=== PATIENT | male | born 1960 | race Caucasian/White ===

== ENCOUNTER 2017-03-20 12:08 | Emergency (ER) | payer BC ==
[2017-03-20] MEDS ORDERED: Lidocaine 1% PF 5 ML VIAL ONE (14:37)
[2017-03-20] MEDS ORDERED: Clindamycin/D5W 600 mg/50 ml Premix Bag ONE (16:04)
[2017-03-20 16:19] LABS: #Eosinphils 0.2 thou/uL (0.0-0.7); #Lymphocytes 1.1 thou/uL (1.20-3.40); #Monocytes 0.6 thou/uL (0.11-0.59); #Neutrophils 7.5 thou/uL (1.40-6.50); %Basophils 0.1 % (0.0-1.0); %Eosinophils 2.1 % (0.0-10.0); %Monocytes 6.3 % (0.0-10.0); Mean Platelet Volume 7.2 fL (7.4-10.4); White Blood Cell (WBC) Count 9.4 thou/uL (4.8-10.8)
--- NOTE | 2017-03-20 16:19 | RAD ---
RADIOGRAPH RIGHT KNEE 4 VIEWS: 03/20/17 HISTORY: 56-year-old male status post trauma, lacerations of the right knee. FINDINGS: There is superficial soft tissue lucency superiorly and medial to the knee. No fracture or dislocati on. No high grade degenerative changes, radiopaque foreign body, or joint effusion. IMPRESSION: 1. Anterior superior soft tissue laceration. 2. No osseous abnormality. POS: [facility]
[2017-03-20 16:23] LABS: PTT 26.5 SEC (22.9-36.1); Prothrombin Time 13.7 SEC (12.0-14.7)
[2017-03-20 16:42] LABS: Anion Gap 12 mmol/L (10-20); BUN (Urea Nitrogen) 11 mg/dL (8.4-25.7); Calc. Creatinine Clearance 0 mL/min (70-130); Calcium 9.7 mg/dL (7.8-10.44); Carbon Dioxide 26 mmol/L (22-29); Chloride 104 mmol/L (98-107); Estimated GFR-MDRD Greater than 90
[2017-03-20] MEDS ORDERED: Lidocaine 2% PF 10 ML AMP (For Epidural Use) ONE (16:45)
[2017-03-20] MEDS ORDERED: Bacitracin Zinc 1 Packet ONE (17:13)
== END 2017-03-20 17:25 | disposition home or self-care (01) ==
LOC: ERS 12:08
DX: S81.011A Laceration without foreign body, right knee, initial encounter (principal); I10 Essential (primary) hypertension; K21.9 Gastro-esophageal reflux disease without esophagitis; F17.220 Nicotine dependence, chewing tobacco, uncomplicated; Z79.899 Other long term (current) drug therapy; W45.8XXA Other foreign body or object entering through skin, initial encounter
CPT/HCPCS: 12002; 36415; 80048; 85025; 85610; 85730; 86850; 86900; 86901; 96374; 96375; 96376; J2001; J2270; J3490

== ENCOUNTER 2018-12-25 11:17 | Observation (INO) | payer BC, SELFPAY ==
[2018-12-25] MEDS ORDERED: Nitroglycerin 2% Ointment 1 INCH/1 GM Packet ONE (12:28)
[2018-12-25 12:39] LABS: #Eosinphils 0.1 thou/uL (0.0-0.7); #Lymphocytes 1.2 thou/uL (1.20-3.40); #Monocytes 0.8 thou/uL (0.11-0.59); %Basophils 0.3 % (0.0-1.0); %Lymphocytes 14.7 % (21.0-51.0); %Monocytes 9.4 % (0.0-10.0); %Neutrophils 74.7 % (42.0-75.0); Hemoglobin 14.9 g/dL (14.0-18.0); Mean Corpuscular HGB CONC 34.7 g/dL (32.0-36.0); Mean Corpuscular Hemoglobin 33.5 pg (27.0-31.0); Mean Corpuscular Volume 96.5 fL (78.0-98.0); Mean Platelet Volume 6.8 fL (7.4-10.4); Platelet Count 253 thou/uL (130-400); Red Blood Cell (RBC) Count 4.45 mill/uL (4.70-6.10); White Blood Cell (WBC) Count 8.1 thou/uL (4.8-10.8)
[2018-12-25 13:00] LABS: ALT (SGPT) 30 U/L (8-55); AST (SGOT) 21 U/L (5-34); Albumin 4.7 g/dL (3.5-5.0); Alkaline Phosphatase 68 U/L (40-150); Anion Gap 13 mmol/L (10-20); BUN (Urea Nitrogen) 14 mg/dL (8.4-25.7); Bilirubin, Total 0.8 mg/dL (0.2-1.2); Calc. Creatinine Clearance 0 mL/min (70-130); Carbon Dioxide 27 mmol/L (22-29); Chloride 100 mmol/L (98-107); Estimated GFR-MDRD 90; Globulin 2.8 g/dL (2.4-3.5); Glucose 99 mg/dL (70-105); Potassium 4.2 mmol/L (3.5-5.1); Protein, Total 7.5 g/dL (6.0-8.3); Sodium 136 mmol/L (136-145)
--- NOTE | 2018-12-25 14:27 | RAD ---
RADIOGRAPH CHEST 1 VIEW: DATE: 12/25/2018 HISTORY: 58-year-old male with chest pain FINDINGS: There are no airspace densities, pulmonary edema, pneumothorax, or cardiomegaly. The lateral costophr enic angles are sharp. IMPRESSION: No acute cardiopulmonary findings.
[2018-12-25 16:06] LABS: Troponin I Less than 0.010 ng/mL (< 0.028)
[2018-12-25] MEDS ORDERED: Ondansetron ODT 4 MG TAB PO PRN (17:33)
[2018-12-25] MEDS ORDERED: Acetaminophen 325 MG TAB PO PRN (17:33)
[2018-12-25] MEDS ORDERED: Acetaminophen 650 MG Suppository PR PRN (17:33)
[2018-12-25] MEDS ORDERED: Ondansetron PF 4 MG/2 ML Vial IVP PRN (17:33)
[2018-12-25 17:48] VITALS: BMI 28.6
[2018-12-25] MEDS ORDERED: Nicotine 14 MG PATCH TD SCH (18:00)
[2018-12-25 19:00] LABS: Troponin I Less than 0.010 ng/mL (< 0.028)
--- NOTE | 2018-12-25 21:11 | HP ---
CHIEF COMPLAINT: Chest pain. HISTORY OF PRESENT ILLNESS: Mr. Garcia is a pleasant 58-year-old man, who presents following an episode of chest pain that started around 10 a.m. this morning while he was at [employer]. The patient apparently was witnessed to appear unwell and pale. The patient reports feeling discomfort on the left side of his chest, which was nonradiating. He finds it difficult to rate in terms of severity and states it was possibly 6/10, though he tends to have a high pain threshold. He does report feeling queasy and per EMS, it was told he appeared diaphoretic. He states the discomfort had eased by the time he arrived to the emergency department. Currently, the pain is 1/10, which he describes as an ache. He reports feeling a fluttering in his chest when it first started. He has been well in himself in in recent days. Denies having any recent fevers, chills, or sweats. No cough or shortness of breath. No abdominal pain. Has had normal bowel movements. No urinary symptoms. In the emergency department, he was given Nitrostat. The patient states by then the pain had already eased on its own. The patient states he has never had pain like this before and has never undergone any cardiac investigations in the past. He does have hypertension that is well managed, though he admits to not checking his blood pressure regularly. At times when he does check it, it is in the one-teens in the mornings, but he takes his medication in the evenings. PAST MEDICAL HISTORY: 1. Hypertension. 2. GERD. PAST SURGICAL HISTORY: Pilonidal cyst during childhood. SOCIAL HISTORY: The patient reports chewing tobacco daily. He did smoke cigarettes previously. Reports occasional alcohol. States he usually drinks 2 to 3 days of the week and will have 3 to 4 mixed alcoholic drinks each of those days. Denies any illicit drug use. ALLERGIES: 1. ERYTHROMYCIN. 2. PENICILLIN. CURRENT MEDICATIONS: 1. Chlorthalidone. 2. Alejo. 3. Pantoprazole. 4. Olmesartan/amlodipine. PHYSICAL EXAMINATION: GENERAL: The patient appears well developed, well nourished, is in no acute distress. VITAL SIGNS: Temperature 98.3, pulse 80, respirations 16, O2 saturation 97% on room air, blood pressure 119/68. HEENT: Normocephalic and atraumatic. Pupils are equal, round, and reactive to light. Sclerae without icterus. Oropharynx is clear. NECK: Supple without lymphadenopathy. LUNGS: Clear to auscultation bilaterally without wheezes, rales, or rhonchi. CARDIAC: Regular rate and rhythm without audible murmurs, rubs, or gallops. No chest wall tenderness. ABDOMEN: Soft, nontender, nondistended. Normoactive bowel sounds present. EXTREMITIES: No lower leg swelling or edema. NEUROLOGIC: Alert and oriented x3. SKIN: Without rash or jaundice. LABORATORY DATA: Full blood count unremarkable. Electrolytes unremarkable. BUN 14, creatinine 0.88, GFR 90. LFTs unremarkable. BNP 22.7. Troponin negative x2. IMAGING DATA: Chest x-ray, 12/25/2018. No acute cardiopulmonary findings. IMPRESSION AND PLAN: Mr. Garcia is a 58-year-old man, who is being admitted for management of the following. 1. Chest pain. The patient had an episode of chest discomfort associated with diaphoresis and nausea this morning at 10 a.m. Troponins negative x2. Chest x-ray unremarkable. BNP normal. The patient has not undergone investigations in the past and family history is unknown. We will continue to trend troponin. EKG without any ST changes or T-wave abnormalities, done in the ED. We will request an echo. The patient will be kept n.p.o. at midnight in preparation for stress test. 2. Hypertension. We will monitor blood pressure and resume home medications. 3. Gastrointestinal prophylaxis. 4. Deep venous thrombosis prophylaxis. 5. Code status, full. His surrogate decision maker is his , Laurel Garcia. The patient's case to be discussed with attending. Job ID: [id number]
[2018-12-26 05:37] LABS: #Eosinphils 0.2 thou/uL (0.0-0.7); #Lymphocytes 1.6 thou/uL (1.20-3.40); #Monocytes 0.9 thou/uL (0.11-0.59); #Neutrophils 5.2 thou/uL (1.40-6.50); %Basophils 0.2 % (0.0-1.0); %Eosinophils 2.6 % (0.0-10.0); %Monocytes 10.9 % (0.0-10.0); %Neutrophils 66.4 % (42.0-75.0); Hemoglobin 14.3 g/dL (14.0-18.0); Mean Corpuscular HGB CONC 35.2 g/dL (32.0-36.0); Mean Corpuscular Hemoglobin 34.2 pg (27.0-31.0); Mean Corpuscular Volume 97.3 fL (78.0-98.0); Platelet Count 244 thou/uL (130-400); RBC Distribution Width 10.8 % (11.5-14.5); Red Blood Cell (RBC) Count 4.17 mill/uL (4.70-6.10); White Blood Cell (WBC) Count 7.9 thou/uL (4.8-10.8)
[2018-12-26 05:37] LABS: Bacteria/HPF 1+ HPF (None Seen); Bilirubin Negative (Negative); Blood, Urine Negative (Negative); Clarity Clear (Clear); Glucose, Urine (Dipstick) Normal (Negative); Leukocyte Negative Leu/uL (Negative); Nitrite Negative (Negative); Protein, Urine (Dipstick) Negative (Neg-Trace); RBC/HPF 0-3 HPF (0-3); Urobilinogen Normal mg/dL (Less than 2); WBC/HPF 0-3 HPF (0-3)
[2018-12-26 05:41] LABS: Urine Culture Reflex No No
[2018-12-26 06:07] LABS: Anion Gap 13 mmol/L (10-20); BUN (Urea Nitrogen) 12 mg/dL (8.4-25.7); Calc. Creatinine Clearance 107 mL/min (70-130); Calcium 9.4 mg/dL (7.8-10.44); Carbon Dioxide 27 mmol/L (22-29); Chloride 100 mmol/L (98-107); Estimated GFR-MDRD 82; Glucose 99 mg/dL (70-105); Potassium 3.8 mmol/L (3.5-5.1); Sodium 136 mmol/L (136-145)
--- NOTE | 2018-12-26 11:18 | NM ---
EXAM: Nuclear medicine cardiac SPECT with EF and wall motion: HISTORY: Chest pain, hypertension Protocol: Exam was performed using [employer] protocol. The patient is injected with29.5 millicuries of technetium 99m sestamibi intravenously for stress monet ges. The patient is injected with11.0 millicuries of technetium 99 sestamibi intravenously for resting monet ges. Multiple SPECT images are performed in the short axis, vertical long axis, and horizontal long axis. FINDINGS: No scan evidence for infarct or ischemia. TID:1.2 LHR:0.30 EDV:94 mL EF:68% Wall motion:Within normal limits. IMPRESSION: Unremarkable cardiac SPECT with EF and wall motion.
[2018-12-26] MEDS ORDERED: ADENOSINE 60 MG/20 ML VIAL ONE (11:56)
[2018-12-26 12:03] VITALS: BP 116/73; TEMP 97.8
[2018-12-26] MEDS ORDERED: Chlorthalidone 25 MG TAB PO SCH (17:00)
[2018-12-26] MEDS ORDERED: Amlodipine 5 MG TAB PO SCH (17:00)
--- NOTE | 2018-12-27 09:55 | DIS ---
DATE OF ADMISSION: 12/25/2018 DATE OF DISCHARGE: 12/26/2018 DISCHARGE DIAGNOSES: 1. Chest pain, resolved. 2. Hypertension. 3. Tobacco use. HOSPITAL COURSE: Mr. Garcia is a 58-year-old man with a history of hypertension and GERD, who presented with complaints of chest pain on the left side, nonradiating. The patient was given Nitrostat in the emergency department, however, by then it had already settled on its own. He was referred for ACS rule out and underwent troponins which were negative x3. BNP was 22.7. Laboratory studies were otherwise unremarkable including normal LFTs. The patient underwent a chest x-ray at initial presentation which showed no acute cardiopulmonary findings. EKG done in the emergency department showed no ST changes or T-wave abnormalities. The patient underwent a stress test which was unremarkable. There was no evidence for infarct or ischemia. He had an EF of 68% and wall motion was within normal limits. The patient therefore was medically cleared for discharge home as he remained pain-free throughout the rest of his stay. He did undergo an echocardiogram during his stay with results unavailable at the time of discharge, but given the normal EF noted on the stress test, it was deemed he could go home and follow upwith results with his primary care physician. The patient was seen and examined at the time of discharge. DISCHARGE CONDITION: Stable. ACTIVITY: As tolerated. DIET: Heart healthy. DISCHARGE MEDICATIONS: None. The patient was advised to resume his regular home medications. FOLLOWUP: The patient will follow up with his primary care physician within 1 week. DISPOSITION: Patient medically cleared for discharge home. Case was discussed with Dr. Brown, who agrees with plan of care as described above. Job ID: [id number]
--- NOTE | 2018-12-31 10:59 | EKG ---
Test Reason : CP Blood Pressure : / mmHG Vent. Rate : 063 BPM Atrial Rate : 063 BPM P-R Int : 132 ms QRS Dur : 086 ms QT Int : 384 ms P-R-T Axes : 006 021 039 degrees QTc Int : 392 ms Normal sinus rhythm Normal ECG Confirmed by RUBY YAÑEZ ([id number]), acquisitions editor YENIFER COREA ([id number]) on 12/31/2018 10:59:38 AM Referred By: PARI Confirmed By:RUBY YAÑEZ
== END 2018-12-26 14:29 | disposition home or self-care (01) ==
LOC: ERS 11:17 → 2SW 14:31
PROVIDERS: ADMIT Internal Medicine; ATTEND Internal Medicine
DX: R07.89 Other chest pain (principal); R61 Generalized hyperhidrosis; I10 Essential (primary) hypertension; K21.9 Gastro-esophageal reflux disease without esophagitis; F17.220 Nicotine dependence, chewing tobacco, uncomplicated; Z88.0 Allergy status to penicillin; Z88.1 Allergy status to other antibiotic agents; Z79.899 Other long term (current) drug therapy
CPT/HCPCS: 36415; 71045; 78452; 80048; 80053; 81001; 83880; 84484; 85025; 93005; 93017; 93306; A9500; G0378; J0153

== ENCOUNTER 2020-11-05 15:54 | Outpatient (CLI) | payer BC | END 2020-11-05 15:55 | disposition home or self-care (01) | LOC: BICRAD 15:54 | PROVIDERS: ATTEND Family Medicine | DX: M47.22 Other spondylosis with radiculopathy, cervical region (principal) | CPT/HCPCS: 72050 ==

== ENCOUNTER 2020-11-22 12:16 | Outpatient (CLI) | payer BC | END 2020-11-22 12:17 | disposition home or self-care (01) | LOC: BICMRI 12:16 | PROVIDERS: ATTEND Family Medicine | DX: M50.10 Cervical disc disorder with radiculopathy, unspecified cervical region (principal); M48.02 Spinal stenosis, cervical region; M47.22 Other spondylosis with radiculopathy, cervical region | CPT/HCPCS: 72141 ==

== ENCOUNTER 2020-12-30 11:42 | Inpatient (IN) | payer BC, OTHER ==
[2020-12-31 02:36] VITALS: BMI 28.5
[2020-12-31 16:03] VITALS: BP 132/81; TEMP 98.5
== END 2020-12-31 18:00 | disposition home or self-care (01) | DRG 502 ==
LOC: ERS 11:42 → SDC/OP 22:24 → SJJU 23:00
PROVIDERS: ADMIT Orthopaedic Surgery Hand Surgery; ATTEND Orthopaedic Surgery Hand Surgery
PROC: 0KQD0ZZ Repair Left Hand Muscle, Open Approach (ICD-10-PCS; principal; 2020-12-31)
PROC: 0KQB0ZZ Repair Left Lower Arm and Wrist Muscle, Open Approach (ICD-10-PCS; 2020-12-31)
PROC: 01Q40ZZ Repair Ulnar Nerve, Open Approach (ICD-10-PCS; 2020-12-31)
DX: S56.222A Laceration of other flexor muscle, fascia and tendon at forearm level, left arm, initial encounter (principal); S61.217A Laceration without foreign body of left little finger without damage to nail, initial encounter; W18.30XA Fall on same level, unspecified, initial encounter; I10 Essential (primary) hypertension; E78.5 Hyperlipidemia, unspecified; Z88.1 Allergy status to other antibiotic agents; Z88.0 Allergy status to penicillin; K21.9 Gastro-esophageal reflux disease without esophagitis; F17.220 Nicotine dependence, chewing tobacco, uncomplicated; Z79.899 Other long term (current) drug therapy; Z20.822 Contact with and (suspected) exposure to COVID-19
CPT/HCPCS: 36415; 80069; 96365; 96375; 96376; J0692; J1100; J1885; J2270; J2405; J2704; J3010; J3370; J3490; S0020; U0002; U0005

== ENCOUNTER 2021-03-19 15:45 | Outpatient (CLI) | payer BC ==
[2021-03-19 17:08] LABS: Hemoglobin 15.5 g/dL (13.5-17.5); Mean Corpuscular HGB CONC 34.8 g/dL (32.0-36.0); Mean Corpuscular Hemoglobin 33.4 pg (27.0-33.0); Mean Corpuscular Volume 96.1 fl (81.2-95.1); Mean Platelet Volume 9.7 fl (7.4-10.4); Platelet Count 239 10x3/uL (150-450); RBC Distribution Width 11.5 % (11.5-14.5); Red Blood Cell (RBC) Count 4.64 10x6/uL (4.32-5.72); White Blood Cell (WBC) Count 8.5 10x3/uL (3.5-10.5)
[2021-03-19 17:35] LABS: Anion Gap 16 mmol/L (10-20); BUN (Urea Nitrogen) 30 mg/dL (8.4-25.7); Calc. Creatinine Clearance 0 mL/min (70-130); Calcium 10.8 mg/dL (7.8-10.44); Carbon Dioxide 24 mmol/L (22-29); Chloride 101 mmol/L (98-107); Glucose 89 mg/dL (70-105); Sodium 137 mmol/L (136-145)
[2021-03-20 02:16] LABS: SARS-CoV-2 PCR by NAA Not Detected (NotDetected)
== END 2021-03-19 15:46 | disposition home or self-care (01) ==
LOC: LABBT 15:45
PROVIDERS: ATTEND Psychiatry & Neurology Child & Adolescent Psychiatry
DX: Z01.818 Encounter for other preprocedural examination (principal); Z20.822 Contact with and (suspected) exposure to COVID-19
CPT/HCPCS: 80048; 85027; 93005; 93010; U0003; U0005

== ENCOUNTER 2021-03-24 06:25 | Observation (INO) | payer BC ==
[2021-03-20 11:33] VITALS: BMI 29.5
[2021-03-24] MEDS ORDERED: HYDROmorphone 2 MG/ML VIAL ONE (07:09)
[2021-03-24] MEDS ORDERED: Fentanyl 100 MCG/2 ML VIAL ONE ×4 (07:09→10:47)
[2021-03-24] MEDS ORDERED: Midazolam HCl 2 mg/2 ml Vial ONE (07:09)
[2021-03-24] MEDS ORDERED: Levofloxacin 500 mg/D5W 100 ml Premix Bag ONE (07:16)
[2021-03-24] MEDS ORDERED: Clindamycin/D5W 900 mg/50 ml Premix Bag ONE ×2 (07:16→13:48)
[2021-03-24] MEDS ORDERED: Phenylephrine 10 MG/ML VIAL ONE (07:17)
[2021-03-24] MEDS ORDERED: Rocuronium Bromide 10 MG/ML (10ML VIAL) ONE (07:57)
[2021-03-24] MEDS ORDERED: Glycopyrrolate 0.2 MG/ML 5 ML SYRINGE ONE (07:57)
[2021-03-24] MEDS ORDERED: Lidocaine 1% PF 5 ML VIAL ONE (07:57)
[2021-03-24] MEDS ORDERED: Ondansetron PF 4 MG/2 ML Vial ONE (07:57)
[2021-03-24] MEDS ORDERED: Dexamethasone 20 MG/5 ML VIAL ONE (07:57)
[2021-03-24] MEDS ORDERED: PROPOFOL 200 MG/20 ML VIAL ONE (07:57)
[2021-03-24] MEDS ORDERED: tiZANidine HCl 4 MG TAB ONE (10:11)
[2021-03-24] MEDS ORDERED: Tamsulosin HCl 0.4 MG CAP ONE (10:15)
[2021-03-24] MEDS ORDERED: Morphine 2 MG/ML VIAL ONE ×2 (10:35→13:29)
[2021-03-24] MEDS ORDERED: Promethazine 25 MG TAB PO PRN (11:00)
[2021-03-24] MEDS ORDERED: Promethazine HCl 25 MG/ML VIAL IM PRN (11:00)
[2021-03-24] MEDS ORDERED: diphenhydrAMINE 50 MG/ML VIAL IVP PRN (11:00)
[2021-03-24] MEDS ORDERED: Acetaminophen/Codeine 30-300mg Tablet PO PRN (11:00)
[2021-03-24] MEDS ORDERED: Promethazine HCl 12.5 MG SUPP PR PRN (11:00)
[2021-03-24] MEDS ORDERED: Ondansetron PF 4 MG/2 ML Vial IVP PRN (11:00)
[2021-03-24] MEDS ORDERED: Milk Of Magnesia 30 ML UDCUP PO PRN (11:00)
[2021-03-24] MEDS ORDERED: Morphine 2 MG/ML VIAL SLOW IVP PRN (11:00)
[2021-03-24] MEDS ORDERED: diphenhydrAMINE 25 MG CAP PO PRN (11:00)
[2021-03-24] MEDS ORDERED: traMADol HCl 50 MG TAB PO PRN ×2 (11:00)
[2021-03-24] MEDS ORDERED: Mag-Al 1200 mg/1200 mg/30 ML UDCUP PO PRN (11:00)
[2021-03-24] MEDS ORDERED: tiZANidine HCl 4 MG TAB PO PRN (11:00)
[2021-03-24] MEDS: Sodium Chloride 0.9% 1,000 ML IV SCH (15:28)
[2021-03-24] MEDS: Clindamycin/D5W 900 MG in Premix Bag 1 BAG IVPB SCH ×2 (15:28→23:06)
[2021-03-24] MEDS: Morphine 4 MG/ML VIAL SLOW IVP PRN ×2 (15:44→17:20)
[2021-03-24] MEDS: Acetaminophen/Codeine 30-300mg Tablet PO PRN ×2 (17:23→23:04)
[2021-03-24] MEDS ORDERED: Amlodipine 5 MG TAB PO SCH (21:00)
[2021-03-24] MEDS ORDERED: Losartan 25 MG TAB PO SCH (21:00)
[2021-03-25] MEDS: Sodium Chloride 0.9% 1,000 ML IV SCH (03:52)
[2021-03-25] MEDS: Acetaminophen/Codeine 30-300mg Tablet PO PRN ×2 (03:55→08:45)
[2021-03-25] MEDS ORDERED: Dexamethasone 4 mg/ml Vial SLOW IVP SCH (05:45)
[2021-03-25] MEDS ORDERED: Tamsulosin HCl 0.4 MG CAP PO SCH (06:00)
[2021-03-25] MEDS ORDERED: Chlorthalidone 25 MG TAB PO SCH (08:00)
[2021-03-25 08:06] VITALS: BP 112/68; TEMP 97.9
[2021-03-25] MEDS: Clindamycin/D5W 900 MG in Premix Bag 1 BAG IVPB SCH (08:44)
[2021-03-25] MEDS ORDERED: FLU VACC QS2021-22(6MOS UP)/PF 60 MCG/0.5 ML SYRINGE IM ONE (18:15)
== END 2021-03-25 11:30 | disposition home or self-care (01) ==
LOC: SDC 06:25 → SURG A 10:18
PROVIDERS: ADMIT Neurological Surgery; ATTEND Neurological Surgery
PROC: 0RG20A0 Fusion of 2 or more Cervical Vertebral Joints with Interbody Fusion Device, Anterior Approach, Anterior Column, Open Approach (ICD-10-PCS; principal; 2021-03-24)
DX: M50.01 Cervical disc disorder with myelopathy, high cervical region (principal); M47.12 Other spondylosis with myelopathy, cervical region; I10 Essential (primary) hypertension; E78.5 Hyperlipidemia, unspecified; R13.10 Dysphagia, unspecified; Z79.899 Other long term (current) drug therapy; Z88.0 Allergy status to penicillin; Z88.1 Allergy status to other antibiotic agents
CPT/HCPCS: 76000; 96374; 96375; 96376; C1713; C1776; G0378; J1100; J1170; J1956; J2250; J2270; J2370; J2405; J2704; J3010; J3490; J7050

== ENCOUNTER 2021-04-10 08:34 | Outpatient (CLI) | payer BC | END 2021-04-10 08:35 | disposition home or self-care (01) | LOC: TBSIIMAG 08:34 | PROVIDERS: ATTEND Family Medicine | DX: M47.12 Other spondylosis with myelopathy, cervical region (principal); Z98.1 Arthrodesis status | CPT/HCPCS: 72040 ==

== ENCOUNTER 2021-05-23 09:32 | Outpatient (CLI) | payer BC | END 2021-05-23 09:33 | disposition home or self-care (01) | LOC: TBSIIMAG 09:32 | PROVIDERS: ATTEND Neurological Surgery | DX: M48.02 Spinal stenosis, cervical region (principal); M47.812 Spondylosis without myelopathy or radiculopathy, cervical region; Z98.1 Arthrodesis status | CPT/HCPCS: 72040 ==

== ENCOUNTER 2021-08-21 09:24 | Emergency (ER) | payer BC ==
[2021-08-21 10:19] LABS: #Eosinphils 0.1 thou/uL (0.0-0.7); #Lymphocytes 1.6 thou/uL (1.20-3.40); #Monocytes 0.5 thou/uL (0.11-0.59); #Neutrophils 4.2 thou/uL (1.40-6.50); %Basophils 0.2 % (0.0-1.0); %Eosinophils 2.2 % (0.0-10.0); %Lymphocytes 24.4 % (21.0-51.0); %Monocytes 8.3 % (0.0-10.0); %Neutrophils 64.9 % (42.0-75.0); Hemoglobin 15.7 g/dL (14.0-18.0); Mean Corpuscular HGB CONC 33.6 g/dL (32.0-36.0); Mean Corpuscular Hemoglobin 33.2 pg (27.0-31.0); Mean Corpuscular Volume 98.8 fL (78.0-98.0); Mean Platelet Volume 6.7 fL (7.4-10.4); Platelet Count 253 thou/uL (130-400); RBC Distribution Width 11.2 % (11.5-14.5); Red Blood Cell (RBC) Count 4.71 mill/uL (4.70-6.10); White Blood Cell (WBC) Count 6.5 thou/uL (4.8-10.8)
[2021-08-21 10:34] LABS: INR-International Normal Ratio 0.9; Prothrombin Time 12.2 sec (12.0-14.7)
[2021-08-21 10:35] LABS: PTT 27.9 sec (22.9-36.1)
[2021-08-21] MEDS ORDERED: Morphine 4 MG/ML VIAL ONE (10:36)
[2021-08-21 10:37] LABS: D-Dimer Test 0.31 *mcg/mL (0.27-0.43)
[2021-08-21 11:03] LABS: ALT (SGPT) 50 U/L (8-55); AST (SGOT) 36 U/L (5-34); Albumin 4.2 g/dL (3.5-5.0); Alkaline Phosphatase 86 U/L (40-110); Anion Gap 14 mmol/L (10-20); BUN (Urea Nitrogen) 25 mg/dL (8.4-25.7); Bilirubin, Total 0.3 mg/dL (0.2-1.2); Calc. Creatinine Clearance 0 mL/min (70-130); Calcium 9.6 mg/dL (7.8-10.44); Carbon Dioxide 26 mmol/L (22-29); Chloride 105 mmol/L (98-107); Globulin 2.9 g/dL (2.4-3.5); Glucose 102 mg/dL (70-105); Magnesium 2.1 mg/dL (1.6-2.6); Potassium 3.7 mmol/L (3.5-5.1); Protein, Total 7.1 g/dL (6.0-8.3); Sodium 141 mmol/L (136-145)
== END 2021-08-21 12:10 | disposition home or self-care (01) ==
LOC: ERS 09:24
DX: I82.401 Acute embolism and thrombosis of unspecified deep veins of right lower extremity (principal); K21.9 Gastro-esophageal reflux disease without esophagitis; I10 Essential (primary) hypertension; F17.220 Nicotine dependence, chewing tobacco, uncomplicated; Z79.899 Other long term (current) drug therapy
CPT/HCPCS: 71045; 75635; 80053; 83735; 85025; 85379; 85610; 85730; 93005; 93926; 96374; J2270

== ENCOUNTER 2022-05-15 14:52 | Observation (INO) | payer BC ==
[~2022-05-15 14:52] MED LIST: Iopamidol-370 76% 500 ML 1 ML ONE
[2022-05-15 15:55] LABS: #Lymphocytes 0.8 thou/uL (1.20-3.40); #Monocytes 0.8 thou/uL (0.11-0.59); #Neutrophils 14.6 thou/uL (1.40-6.50); %Basophils 0.1 % (0.0-1.0); %Eosinophils 0.2 % (0.0-10.0); %Lymphocytes 5.2 % (21.0-51.0); %Monocytes 4.9 % (0.0-10.0); %Neutrophils 89.6 % (42.0-75.0); Hemoglobin 16.3 g/dL (14.0-18.0); Mean Corpuscular HGB CONC 34.1 g/dL (32.0-36.0); Mean Corpuscular Hemoglobin 33.6 pg (27.0-31.0); Mean Corpuscular Volume 98.3 fl (78.0-98.0); Mean Platelet Volume 6.9 fL (7.4-10.4); Platelet Count 267 10x3/uL (130-400); RBC Distribution Width 11.4 % (11.5-14.5); Red Blood Cell (RBC) Count 4.84 mill/uL (4.70-6.10); White Blood Cell (WBC) Count 16.3 10x3/uL (4.8-10.8)
[2022-05-15 16:16] LABS: ALT (SGPT) 51 U/L (8-55); AST (SGOT) 54 U/L (5-34); Albumin 4.5 g/dL (3.5-5.0); Alkaline Phosphatase 86 U/L (40-110); Anion Gap 18 mmol/L (10-20); BUN (Urea Nitrogen) 22 mg/dL (8.4-25.7); Bilirubin, Total 0.9 mg/dL (0.2-1.2); Calc. Creatinine Clearance 0 mL/min (70-130); Calcium 9.7 mg/dL (7.8-10.44); Carbon Dioxide 27 mmol/L (22-29); Chloride 100 mmol/L (98-107); Estimated GFR 49; Globulin 3.6 g/dL (2.4-3.5); Glucose 161 mg/dL (70-105); Potassium 3.2 mmol/L (3.5-5.1); Protein, Total 8.1 g/dL (6.0-8.3); Sodium 142 mmol/L (136-145)
[2022-05-15] MEDS ORDERED: Potassium Chloride 20 MEQ TAB ONE (17:46)
[2022-05-15] MEDS ORDERED: Potassium Chloride 20 MEQ/100 ML PREMIX BAG ONE (17:46)
[2022-05-15] MEDS ORDERED: Nitroglycerin 0.4 MG TAB (25 Tab Bottle) SL PRN (18:32)
[2022-05-15] MEDS ORDERED: Ondansetron PF 4 MG/2 ML Vial IVP PRN (18:32)
[2022-05-15] MEDS ORDERED: Ondansetron ODT 4 MG TAB PO PRN (18:32)
[2022-05-15 18:49] VITALS: BMI 30.4
[2022-05-15 18:51] LABS: SARS-CoV-2 NAA Rapid Test Not Detected (NotDetected)
[2022-05-15 19:18] LABS: Magnesium 1.5 mg/dL (1.6-2.6)
[2022-05-15] MEDS: Sodium Chloride 0.9% 1,000 ML IV SCH (19:18)
[2022-05-15 19:20] LABS: Troponin I Less than 0.010 ng/mL (< 0.028)
[2022-05-15 19:29] LABS: Hemoglobin A1c 5.1 % (4.0-6.0)
[2022-05-15] MEDS: Acetaminophen 325 MG TAB PO PRN (20:38)
[2022-05-15 20:43] LABS: Bacteria/HPF None Seen HPF (None Seen); Bilirubin Negative (Negative); Blood, Urine Negative (Negative); CAUTI Indications for Culture Fever or rigors; Clarity Clear (Clear); Glucose, Urine (Dipstick) 30 mg/dL (Negative); Ketone, Urine Trace mg/dL (Negative); Leukocyte Negative Leu/uL (Negative); Nitrite Negative (Negative); Protein, Urine (Dipstick) 20 mg/dL (Neg-Trace); RBC/HPF 0-3 HPF (0-3); Squamous Epithelial 0-3 HPF (0-3); Urobilinogen Normal mg/dL (Less than 2); WBC/HPF 0-3 HPF (0-3)
[2022-05-15 20:45] LABS: Urine Culture Reflex No No
[2022-05-15 20:51] LABS: Amphetamine Not Detected (NotDetected); Barbiturates Screen Not Detected (NotDetected); Benzodiazepine Screen Not Detected (NotDetected); Cocaine Metabolite Screen Not Detected (NotDetected); Methadone Not Detected (NotDetected); Methamphetamine Not Detected (NotDetected); Opiate Screen Not Detected (NotDetected); Oxycodone Screen Not Detected (NotDetected); Phencyclidine (PCP) Not Detected (NotDetected); THC/Cannabinoid Screen Not Detected (NotDetected); Tricyclic Screen Not Detected (NotDetected)
[2022-05-15] MEDS ORDERED: Magnesium 2 GM/50 ML(in water) 2 GM in Premix Bag 1 BAG IVPB SCH (21:30)
[2022-05-15 22:13] LABS: Troponin I Less than 0.010 ng/mL (< 0.028)
[2022-05-16] MEDS: Sodium Chloride 0.9% 1,000 ML IV SCH ×2 (04:19→17:56)
[2022-05-16 05:13] LABS: #Eosinphils 0.1 thou/uL (0.0-0.7); #Lymphocytes 1.1 thou/uL (1.20-3.40); #Monocytes 0.8 thou/uL (0.11-0.59); #Neutrophils 6.4 thou/uL (1.40-6.50); %Basophils 0.1 % (0.0-1.0); %Eosinophils 0.8 % (0.0-10.0); %Lymphocytes 12.8 % (21.0-51.0); %Monocytes 9.1 % (0.0-10.0); %Neutrophils 77.2 % (42.0-75.0); Hemoglobin 14.4 g/dL (14.0-18.0); Mean Corpuscular HGB CONC 33.4 g/dL (32.0-36.0); Mean Corpuscular Hemoglobin 33.2 pg (27.0-31.0); Mean Corpuscular Volume 99.6 fl (78.0-98.0); Platelet Count 214 10x3/uL (130-400); RBC Distribution Width 11.4 % (11.5-14.5); Red Blood Cell (RBC) Count 4.32 mill/uL (4.70-6.10); White Blood Cell (WBC) Count 8.3 10x3/uL (4.8-10.8)
[2022-05-16 05:32] LABS: Anion Gap 10 mmol/L (10-20); BUN (Urea Nitrogen) 21 mg/dL (8.4-25.7); Calc. Creatinine Clearance 114 mL/min (70-130); Calcium 8.9 mg/dL (7.8-10.44); Carbon Dioxide 27 mmol/L (22-29); Cardiac Risk 2.8 (Less than 4.5); Chloride 103 mmol/L (98-107); Cholesterol 159 mg/dl (< 200 Desired); Estimated GFR 96; Glucose 107 mg/dL (70-105); HDL Cholesterol 57 mg/dL (>60 Neg Risk); LDL Cholesterol, Calculated 87 mg/dL; Magnesium 2.2 mg/dL (1.6-2.6); Potassium 3.2 mmol/L (3.5-5.1); Sodium 137 mmol/L (136-145); Triglycerides 76 mg/dL (Less than 150)
[2022-05-16] MEDS ORDERED: Potassium Chloride 20 MEQ TAB PO SCH (08:03)
[2022-05-16] MEDS: Aspirin Chewable 81 MG TAB PO SCH (10:57)
[2022-05-16] MEDS: FLUoxetine HCl 10 MG CAP PO SCH (10:57)
[2022-05-16] MEDS: Enoxaparin Sodium 40 MG/0.4 ML SYRINGE SC SCH (10:57)
[2022-05-16] MEDS: Rosuvastatin 5 MG TAB PO SCH (10:57)
[2022-05-16 13:39] LABS: Potassium 3.7 mmol/L (3.5-5.1)
[2022-05-16] MEDS ORDERED: ADENOSINE 60 MG/20 ML VIAL ONE (13:49)
[2022-05-16] MEDS: Acetaminophen 325 MG TAB PO PRN (20:19)
[2022-05-16] MEDS ORDERED: Losartan 25 MG TAB PO SCH (21:00)
[2022-05-16] MEDS ORDERED: Chlorthalidone 25 MG TAB PO SCH (21:00)
[2022-05-16] MEDS ORDERED: Amlodipine 5 MG TAB PO SCH (21:00)
[2022-05-17] MEDS: Enoxaparin Sodium 40 MG/0.4 ML SYRINGE SC SCH (10:03)
[2022-05-17] MEDS: Rosuvastatin 5 MG TAB PO SCH (10:03)
[2022-05-17] MEDS: Aspirin Chewable 81 MG TAB PO SCH (10:03)
[2022-05-17] MEDS: FLUoxetine HCl 10 MG CAP PO SCH (10:03)
[2022-05-17 11:57] VITALS: BP 119/76; TEMP 98
== END 2022-05-17 15:24 | disposition home or self-care (01) ==
LOC: ERS 14:52 → 2SW 17:02
PROVIDERS: ADMIT Internal Medicine; ATTEND Internal Medicine
DX: R07.89 Other chest pain (principal); R55 Syncope and collapse; Q79.1 Other congenital malformations of diaphragm; E87.6 Hypokalemia; E83.42 Hypomagnesemia; I10 Essential (primary) hypertension; E78.5 Hyperlipidemia, unspecified; G47.33 Obstructive sleep apnea (adult) (pediatric); R53.83 Other fatigue; D72.829 Elevated white blood cell count, unspecified; N17.9 Acute kidney failure, unspecified; S90.31XA Contusion of right foot, initial encounter; K21.9 Gastro-esophageal reflux disease without esophagitis; M19.90 Unspecified osteoarthritis, unspecified site; Z86.718 Personal history of other venous thrombosis and embolism; Z87.891 Personal history of nicotine dependence; Z79.899 Other long term (current) drug therapy; Z88.0 Allergy status to penicillin; Z88.1 Allergy status to other antibiotic agents; Z20.822 Contact with and (suspected) exposure to COVID-19
CPT/HCPCS: 36415; 71045; 71275; 78452; 80048; 80053; 80061; 80306; 81001; 83036; 83735; 83880; 84443; 84484; 85025; 93005; 93017; 93306; 93880; 94760; 96365; 96372; A9500; G0378; J0153; J1650; J3475; J3480; J7050; Q9967